=== PATIENT | female | born 1945 | race Caucasian/White ===

== ENCOUNTER 2021-11-16 20:27 | Observation (INO) | payer MEDICARE, SELFPAY ==
[2021-11-16 20:29] VITALS: BP 115/47; PULSE 101; RESP 15; TEMP 36.2; O2SAT 98; BMI 20.2
--- NOTE | 2021-11-16 20:47 | EX.ED.DYSGE1 ---
HPI History of Present Illness Chief Complaint: Lower Extremity Injury Informant: patient and family Narrative Narrative: 76-year-old female presenting to the emergency room with left knee pain. Patient states that she fell last night and broke her patella. She was placed in a knee immobilizer at the urgent care. She takes tramadol chronically for chronic pain and it was not helping her last night. She went and saw her primary care provider today and [place] was given a prescription for hydrocodone but its not helping her pain. Her primary care physician advised them to come to emergency for pain control tonight. PFSH PFSH Medical History (Updated 11/16/21 @ 22:[address] Joe Mustafa DO) COPD (chronic obstructive pulmonary disease) DVT (deep venous thrombosis) Former smoker GERD (gastroesophageal reflux disease) Hypothyroidism Osteoporosis Pancreatitis Sleep apnea Allergy/AdvReac Type Severity Reaction Status Date / Time codeine AdvReac Upset Verified 11/16/21 20:29 Stomach Surgical History (Updated 11/16/21 @ 20:54 by Meredith Barahona) H/O: hysterectomy History of appendectomy History of bladder repair surgery History of cholecystectomy History of hernia surgery History of total right knee replacement Previous back surgery S/P surgery on nasal septum Social History (Updated 11/16/21 @ 20:[address] Joe Mustafa DO) current gender identity: female Smoking Status: Never smoker ROS ROS ED Constitutional Constitutional ED: Denies chills or weight loss Eyes Eyes: Denies change in vision or diplopia ENT ENT ED: Denies ear pain, rhinorrhea or sore throat Cardiovascular Cardiovascular: Denies chest pain, orthopnea, palpitations or racing heartbeat Respiratory/Chest Respiratory/Chest: Denies cough, dyspnea or orthopnea Gastrointestinal Gastrointestinal: Denies abdominal pain, diarrhea, nausea or vomiting Genitourinary Genitourinary ED: Denies dysuria, hematuria or urinary frequency Musculoskeletal Musculoskeletal: Reports other Details: Left knee pain ; Denies arthralgias or myalgias Integumentary Denies abscess or rash Neurologic Neurologic: Denies headache(s) or weakness Psychiatric Psychiatric: Denies anxiety, depression, suicidal ideation or suicidal thoughts Endocrine Endocrinology: Denies polydipsia, polyphagia or polyuria Allergic/Immunologic Allergic/Immunologic ED: Denies mouth swelling, tongue swelling or urticaria EXAM Physical Exam Const Vital Signs: 11/16/21 20:29 Temperature 97.2 F L Temperature Source Temporal Pulse Rate 101 H Respiratory Rate 15 Blood Pressure 115/47 L Blood Pressure Mean 69 Pulse Ox 98 Oxygen Delivery Method Room Air Positive well nourished and well developed General Appearance ED: well developed HEENT Reports normocephalic, head/scalp atraumatic and moist mucous membranes Eyes PERRL and EOMs intact bilaterally Neck no lymphadenopathy, supple and no JVD Resp normal respiratory effort and clear to auscultation bilaterally Cardio regular rate, regular rhythm and no murmurs GI normal to inspection, nondistended, normoactive bowel sounds and non-tender Palpation: soft Back/Spine no CVA tenderness and normal ROM Extremity Extremity Narrative: Tender to palpation of the left patella/knee. The knee immobilizer she has on is large ill fitting and is down near her ankle providing minimal knee support. She has been here General Extremety ED: Negative for edema General Extremity: Negative for edema Neuro oriented x3 and CN's II-XII intact bilaterally Sensorium / Orientation: alert Motor Exam: strength 5/5 throughout Psych mental status grossly normal Mood & Affect: Negative for depressed or tearful Skin no rashes or lesions noted and no wounds MDM MDM MDM Narrative Medical decision making narrative: My impression of the plain films of the left knee is a nondisplaced incomplete patellar fracture. My impression of the plain films of the left hip and pelvis is no acute fracture. Patient received a dose of morphine and Valium. In speaking with the patient and her family she most likely would benefit from rehab facility help as she is not ambulating and her pain is not controlled. I will speak with our hospitalist regarding admission. Lab Data Labs: Laboratory Results - last 24 hr 11/16/21 11/16/21 22:15 22:15 WBC 7.9 RBC 4.04 L Hgb 12.0 Hct 37.8 MCV 93.6 MCH 29.7 MCHC 31.7 L RDW Std Deviation 45.1 H RDW Coeff of Jay[place] 13.2 Plt Count 243 MPV 9.6 Immature Gran % (Auto) 0.500 Neut % (Auto) 72.1 H Lymph % (Auto) 15.9 L [place] % (Auto) 10.8 H Eos % (Auto) 0.3 Baso % (Auto) 0.4 Absolute Neuts (auto) 5.7 Absolute Lymphs (auto) 1.25 Nucleated RBC % 0 Sodium 139 Potassium 4.0 Chloride 105 Carbon Dioxide 32.0 Anion Gap 2 L BUN 21 H Creatinine 0.73 Estim Creat Clear Calc 48.42 Est GFR (MDRD) Af Amer 101 Est GFR (MDRD) Non-Af 83 BUN/Creatinine Ratio 28.9 H Glucose 119 H Calcium 8.8 Radiography Diagnostic Testing: Clinical Impression(s) from Imaging Studies Knee X-Ray 11/16/21 21:07 IMPRESSION: Suspected fracture of the patella with mild thickening soft tissues anterior to the patellar tendon suggesting contusion. No patella andria. Correlation with CT would be helpful. Joint effusion and intra-articular amorphous calcifications suggesting prior cartilage injury and osteochondromatosis. Electronically Signed: Nitesh Hicks DO at 22:27 EDT , Hip/Pelvis X-Ray 11/16/21 21:37 IMPRESSION: No fracture or malalignment. Electronically Signed: Nitesh Hicks DO at 22:20 EDT , Discharge Plan Dx/Rx/DC Orders Clinical Impression: Closed fracture of left patella, Contusion of hip, left, Acute pain of left lower extremity, Chronic peripheral neuropathic pain Disposition Disposition: Acute Care [facility]
--- NOTE | 2021-11-16 21:07 | RAD_ITS ---
INDICATION: fracture EXAMINATION/TECHNIQUE: X-RAY - LEFT XR Knee 1 or 2 Views 2 VIEWS COMPARISON: Left hip x-rays from the same evening. FINDINGS: SOFT TISSUES: Abnormal joint effusion with areas of hyperdensity suggesting calcification. No radiopaque foreign body. BONES/JOINTS: Transverse lucency through the inferior pole of the patellar articular surface likely represents fracture. Irregular bony exostosis superior and inferior poles patella most likely degenerative in etiology. Joint space is relatively well maintained for age. There is some mild prepatellar soft tissue thickening/soft tissue swelling. RAD/Knee 1 or 2 Views IMPRESSION: Suspected fracture of the patella with mild thickening soft tissues anterior to the patellar tendon suggesting contusion. No patella andria. Correlation with CT would be helpful. Joint effusion and intra-articular amorphous calcifications suggesting prior cartilage injury and osteochondromatosis. Electronically Signed: Nitesh Hicks DO at 22:27 EDT ,
[2021-11-16] MEDS: diazePAM 5 MG Tablet PO (21:21)
[2021-11-16] MEDS: morphine 10 MG/ML Syringe IM (21:24)
--- NOTE | 2021-11-16 21:37 | RAD_ITS ---
INDICATION: injury EXAMINATION/TECHNIQUE: X-RAY - LEFT XR Hip Unilateral with Pelvis when performed; 2-3 Views 3 VIEWS COMPARISON: Left knee x-rays obtained in conjunction with this exam. FINDINGS: SOFT TISSUES: No soft tissue swelling or gas. No radiopaque foreign body. BONES/JOINTS: No acute fracture or malalignment. Relatively well maintained bilateral hip joint space with minimal degenerative changes for age. No sclerotic or destructive changes observed. Degenerative changes lower lumbar spine. RAD/HIP, UNI W/ Pelvis 2-3 Views IMPRESSION: No fracture or malalignment. Electronically Signed: Nitesh Hicks DO at 22:20 EDT ,
[2021-11-16 22:19] LABS: Absolute Lymphocyte Count 1.25 X10^3/uL (0.83-4.51); Absolute Neutrophil Count 5.7 X10^3/uL (2.0-7.7); Basophil# 0.03 X10^3/uL; Basophil% 0.4 % (0-1); Eosinophil# 0.02 X10^3/uL; Eosinophils% 0.3 % (0-5); Hematocrit 37.8 % (37-47); Lymphocyte # 1.25 X10^3/ul (0.83-4.51); Lymphocyte % 15.9 % (19-41); Mean Corp Hgb Conc 31.7 g/dL (32-36); Mean Corpuscular Hgb 29.7 pg (27.0-32.0); Mean Corpuscular Volume 93.6 fL (81-99); Mean Platelet Vol. 9.6 fl (6.2-12.0); Monocyte# 0.85 X10^3/uL; Monocyte% 10.8 % (0-10); NRBC Flagged by Analyzer 0 % (0-5); Neutrophil # 5.68 X10^3/uL (2.7-7.7); Neutrophil % 72.1 % (47-70); Platelet Count 243 K/mm3 (150-450); RBC Distribution Width CV 13.2 % (11.6-14.6); RBC Distribution Width SD 45.1 fl (35.1-43.9); Red Blood Count 4.04 M/mm3 (4.2-5.4); White Blood Count 7.9 K/mm3 (4.4-11.0)
[2021-11-16 22:34] LABS: Anion Gap 2 (5-15); BUN 21 mg/dL (7-18); BUN/Creat Ratio 28.9 RATIO (10-20); Calcium,Total 8.8 mg/dL (8.5-10.1); Chloride 105 mmol/L (98-107); Creatinine, Serum 0.73 mg/dL (0.55-1.02); EST Glomerular Filtration Rate 83 mL/min (>60); Est Glom Filt Rate - Afr Amer 101 mL/min (>60); Estimated Creatinine Clearance 48.42 ml/min; Glucose 119 mg/dL (74-106); Sodium Level 139 mmol/L (136-145)
--- NOTE | 2021-11-16 22:46 | PCM.HP.STD ---
HPI - General General Date of Admission: 11/16/21 Date of Service: 11/16/21 Chief Complaint: Left knee pain HPI Narrative WILL BAUTISTA, is a 76 F who presents with the above. Patient has past medical history of degenerative joint disease, peripheral neuropathy on Cymbalta who comes in after a fall at the prior to admission. Patient stated that she was at a buffet restaurant and was getting her food when she tripped and fell. She has since had severe left knee pain that is worse with ambulation. Her knee is also swollen. She was seen and given a knee immobilizer in the local ED that was not firm for her. Her daughter brought her to [facility] to be able to take care of her. She however has been requiring more more help with her ADLs and has poor pain control since Blood pressure 115/47, heart rate 101, respiratory 15, temperature 97.2 F, oxygen sat is 98% on room air. CBCD, CMP is unremarkable. X-ray of the knee shows suspected fracture of the patella with mild thickening of the soft tissues anterior to the patellar tendon status the above contusion, joint effusion and intra-articular amorphous calcifications suggestive of prior injury and osteochondromatosis. X-ray of the hip is unremarkable [facility] Medical History COPD (chronic obstructive pulmonary disease) DVT (deep venous thrombosis) Former smoker GERD (gastroesophageal reflux disease) Hypothyroidism Osteoporosis Pancreatitis Sleep apnea Home Medications aspirin 81 mg tablet,delayed release (Adult Low Dose Aspirin) 1 tab PO DAILY 11/16/21 [History Last Taken Unknown] duloxetine 20 mg capsule,delayed release 2 cap PO DAILY 11/16/21 [History Last Taken Unknown] levothyroxine 112 mcg tablet (Synthroid) 1 tab PO DAILY 11/16/21 [History Last Taken Unknown] omeprazole 40 mg capsule,delayed release 1 cap PO DAILY 11/16/21 [History Last Taken Unknown] pramipexole 0.125 mg tablet 0.125 mg PO QHS PRN restless legs 11/16/21 [History Last Taken Unknown] tramadol 50 mg tablet 1 tab PO Q8H PRN Pain 11/16/21 [History Last Taken Unknown] Allergy/AdvReac Type Severity Reaction Status Date / Time nickel Allergy Hives Verified 11/16/21 23:43 codeine AdvReac Upset Verified 11/16/21 20:29 Stomach Family History (Updated 11/16/21 @ 23:[address] Rakel Ocampo MD) Mother COPD (chronic obstructive pulmonary disease) Liver disease Father CVA (cerebral vascular accident) Hemorrhagic Surgical History H/O: hysterectomy History of appendectomy History of bladder repair surgery History of cholecystectomy History of hernia surgery History of total right knee replacement Previous back surgery S/P surgery on nasal septum Social History (Updated 11/16/21 @ 23:[address] Rakel Ocampo MD) household members: none current gender identity: female Smoking Status: Former smoker alcohol intake: never substance use type: does not use ROS ROS Narrative Constitutional: Denies: Anorexia, Chills, Fever, Night Sweats, Weight Change Eyes: Denies: Blurred vision, Cataracts, Conjunctivae Inflammation, Pain, Redness, Vision Change HEENT: Denies: Difficulty Hearing, Difficulty Swallowing, Head Aches, Hearing Changes, Sinus Congestion, Sinus Drainage Cardiovascular: Denies: Chest Pain, Orthopnea, Palpitations Respiratory: Denies: Cough, Shortness of breath at rest, Sputum production Gastrointestinal: Denies: Abdominal Pain, Nausea, Vomiting Genitourinary: Denies: Dysuria Musculoskeletal: See HPI Skin: Denies: Rash, Wounds Neurological: Denies: Numbness, Tingling, Focal weakness Vital Signs Vital Signs Vital Signs: 11/16/21 20:29 Temperature 97.2 F L Temperature Source Temporal Pulse Rate 101 H Respiratory Rate 15 Blood Pressure 115/47 L Blood Pressure Mean 69 Pulse Ox 98 Oxygen Delivery Method Room Air Weight Weight: 62.142 kg Body Mass Index (BMI) 20.2 Physical Exam Narrative Physical exam: General: Alert, Oriented x3, Cooperative, in severe pain HEENT: Atraumatic Oral: Moist Mucosa Neck: Supple Lungs: Clear to auscultation Cardiovascular: HS I+II, regular, tachycardic, no murmurs Abdomen: Bowel Sounds Present, Soft, Non Tender Extremities: No bilateral pedal edema, left knee is tender to touch, in a knee immobilizer Skin: No rashes, No breakdown Neurological: Grossly intact Psych/Mental Status: Appropriate Results Lab / Micro Data Result Diagrams: 11/16/21 22:15 11/16/21 22:15 Labs: Laboratory Results - last 24 hr 11/16/21 22:15: WBC 7.9, RBC 4.04 L, Hgb 12.0, Hct 37.8, MCV 93.6, MCH 29.7, MCHC 31.7 L, RDW Std Deviation 45.1 H, RDW Coeff of Jaydon 13.2, Plt Count 243, MPV 9.6, Immature Gran % (Auto) 0.500, Neut % (Auto) 72.1 H, Lymph % (Auto) 15.9 L, [place] % (Auto) 10.8 H, Eos % (Auto) 0.3, Baso % (Auto) 0.4, Absolute Neuts (auto) 5.7, Absolute Lymphs (auto) 1.25, Nucleated RBC % 0 11/16/21 22:15: Sodium 139, Potassium 4.0, Chloride 105, Carbon Dioxide 32.0, Anion Gap 2 L, BUN 21 H, Creatinine 0.73, Estim Creat Clear Calc 48.42, Est GFR (MDRD) Af Amer 101, Est GFR (MDRD) Non-Af 83, BUN/Creatinine Ratio 28.9 H, Glucose 119 H, Calcium 8.8 Radiology Impression Knee X-Ray 11/16/21 21:07 IMPRESSION: Suspected fracture of the patella with mild thickening soft tissues anterior to the patellar tendon suggesting contusion. No patella andria. Correlation with CT would be helpful. Joint effusion and intra-articular amorphous calcifications suggesting prior cartilage injury and osteochondromatosis. Electronically Signed: Nitesh Hicks DO at 22:27 EDT , Hip/Pelvis X-Ray 11/16/21 21:37 IMPRESSION: No fracture or malalignment. Electronically Signed: Nitesh Hicks DO at 22:20 EDT , Assessment & Plan Assessment/Plan (1) Closed fracture of left patella: PLAN: Plan 1. Debility secondary to acute closed left patella fracture, traumatic, status post fall Patient has underlying history of peripheral neuropathy, suspect that contributed to her fall Patient is unable to ambulate; family is unable to care for her Admit to MedSurg, pain control, PT and OT to evaluate and treat, continue knee immobilizer Continue with scheduled Tylenol, as needed oxycodone and morphine Continue on home Cymbalta when med reconciliation is done Patient will need to continue in the outpatient with orthopedics 2. Peripheral neuropathy/restless legs, continue Cymbalta, pramipexole 3. Hypothyroidism, continue Synthroid 4. GERD, continue PPI 5. DVT prophylaxis -Lovenox subcu Charges/Coding Visit Charges OBSV E&M: 33707 Initial observation care L3
[2021-11-16 23:30] VITALS: RESP 16; O2SAT 95; BMI 19.6
[2021-11-16 23:33] VITALS: BP 115/47; PULSE 86; RESP 16; TEMP 36.3; O2SAT 98
[2021-11-16 23:50] VITALS: BP 126/57; PULSE 65; RESP 18; TEMP 36.6; O2SAT 98
[2021-11-17] VITALS (11 sets, daily range): BP systolic 101–114; BP diastolic 45–84; PULSE 71–98; RESP 16–20; TEMP 36.4–37.2; O2SAT 69–98
[2021-11-17] MEDS: oxyCODONE 5 MG Tablet PO ×2 (00:27→07:21)
[2021-11-17] MEDS: Acetaminophen 325 MG Tablet 650 MG PO (00:27)
[2021-11-17] MEDS: 0.9% Saline Lock 10 ML Syringe IV ×4 (02:41→20:40)
[2021-11-17] MEDS: Levothyroxine 112 MCG Tablet PO (05:52)
[2021-11-17 06:24] LABS: Absolute Lymphocyte Count 1.33 X10^3/uL (0.83-4.51); Absolute Neutrophil Count 4.9 X10^3/uL (2.0-7.7); Basophil# 0.03 X10^3/uL; Basophil% 0.4 % (0-1); Eosinophil# 0.07 X10^3/uL; Hematocrit 36.4 % (37-47); Hemoglobin 11.9 g/dL (12.0-15.0); Lymphocyte # 1.33 X10^3/ul (0.83-4.51); Lymphocyte % 18.6 % (19-41); Mean Corp Hgb Conc 32.7 g/dL (32-36); Mean Corpuscular Hgb 30.4 pg (27.0-32.0); Mean Corpuscular Volume 92.9 fL (81-99); Mean Platelet Vol. 10.1 fl (6.2-12.0); Monocyte# 0.81 X10^3/uL; Monocyte% 11.3 % (0-10); NRBC Flagged by Analyzer 0 % (0-5); Neutrophil # 4.89 X10^3/uL (2.7-7.7); Neutrophil % 68.4 % (47-70); Platelet Count 224 K/mm3 (150-450); RBC Distribution Width CV 13.3 % (11.6-14.6); RBC Distribution Width SD 45.6 fl (35.1-43.9); Red Blood Count 3.92 M/mm3 (4.2-5.4); White Blood Count 7.2 K/mm3 (4.4-11.0)
[2021-11-17 06:54] LABS: AST(SGOT) 15 U/L (15-37); Alanine Aminotransfer ALT/SGPT 19 U/L (13-56); Albumin, Serum 2.8 g/dL (3.2-5.0); Alkaline Phosphatase 120 U/L (45-117); Anion Gap 3 (5-15); BUN 20 mg/dL (7-18); BUN/Creat Ratio 30.3 RATIO (10-20); Calcium,Total 8.3 mg/dL (8.5-10.1); Chloride 108 mmol/L (98-107); Creatinine, Serum 0.66 mg/dL (0.55-1.02); EST Glomerular Filtration Rate 93 mL/min (>60); Est Glom Filt Rate - Afr Amer 113 mL/min (>60); Estimated Creatinine Clearance 46.91 ml/min; Globulin 2.9 g/dL (2.2-4.2); Glucose 111 mg/dL (74-106); Protein, Total 5.7 g/dL (6.4-8.2); Sodium Level 141 mmol/L (136-145)
--- NOTE | 2021-11-17 07:10 | PCM.PN.HOSP ---
Subjective Subjective Still with pain in her hip and knee. Objective Data Objective Data Vital Signs: Vital Signs Temp Pulse Resp BP Pulse Ox O2 Del Method O2 Flow Rate 36.5 C L 71 16 113/45 L 96 Nasal Cannula 2 11/17/21 05:45 11/17/21 05:45 11/17/21 05:45 11/17/21 05:45 11/17/21 05:45 11/17/21 05:45 11/17/21 05:45 Oxygen Flow Rate (L/min) 2 Oxygen Delivery Method Nasal Cannula Weight: 60.2 kg Body Mass Index (BMI) 19.6 Intake & Output: Intake and Output for Last 24 Hours 11/15/21 11/16/21 11/17/21 23:59 23:59 23:59 Intake Total 100 / 100 Balance 100 / 100 Lab / Micro Data Result Diagrams: 11/17/21 05:53 11/17/21 05:53 Labs: Laboratory Results - last 24 hr 11/16/21 22:15: WBC 7.9, RBC 4.04 L, Hgb 12.0, Hct 37.8, MCV 93.6, MCH 29.7, MCHC 31.7 L, RDW Std Deviation 45.1 H, RDW Coeff of Jaydon 13.2, Plt Count 243, MPV 9.6, Immature Gran % (Auto) 0.500, Neut % (Auto) 72.1 H, Lymph % (Auto) 15.9 L, [place] % (Auto) 10.8 H, Eos % (Auto) 0.3, Baso % (Auto) 0.4, Absolute Neuts (auto) 5.7, Absolute Lymphs (auto) 1.25, Nucleated RBC % 0 11/16/21 22:15: Sodium 139, Potassium 4.0, Chloride 105, Carbon Dioxide 32.0, Anion Gap 2 L, BUN 21 H, Creatinine 0.73, Estim Creat Clear Calc 48.42, Est GFR (MDRD) Af Amer 101, Est GFR (MDRD) Non-Af 83, BUN/Creatinine Ratio 28.9 H, Glucose 119 H, Calcium 8.8 11/17/21 05:53: WBC 7.2, RBC 3.92 L, Hgb 11.9 L, Hct 36.4 L, MCV 92.9, MCH 30.4, MCHC 32.7, RDW Std Deviation 45.6 H, RDW Coeff of Jaydon 13.3, Plt Count 224, MPV 10.1, Immature Gran % (Auto) 0.300, Neut % (Auto) 68.4, Lymph % (Auto) 18.6 L, [place] % (Auto) 11.3 H, Eos % (Auto) 1.0, Baso % (Auto) 0.4, Absolute Neuts (auto) 4.9, Absolute Lymphs (auto) 1.33, Nucleated RBC % 0 11/17/21 05:53: Sodium 141, Potassium 4.0, Chloride 108 H, Carbon Dioxide 30.0, Anion Gap 3 L, BUN 20 H, Creatinine 0.66, Estim Creat Clear Calc 46.91, Est GFR (MDRD) Af Amer 113, Est GFR (MDRD) Non-Af 93, BUN/Creatinine Ratio 30.3 H, Glucose 111 H, Calcium 8.3 L, Total Bilirubin 0.60, AST 15, ALT 19, Alkaline Phosphatase 120 H, Total Protein 5.7 L, Albumin 2.8 L, Globulin 2.9, Albumin/Globulin Ratio 1.0 Radiography Diagnostic Testing: Radiology Impression Knee X-Ray 11/16/21 21:07 IMPRESSION: Suspected fracture of the patella with mild thickening soft tissues anterior to the patellar tendon suggesting contusion. No patella andria. Correlation with CT would be helpful. Joint effusion and intra-articular amorphous calcifications suggesting prior cartilage injury and osteochondromatosis. Electronically Signed: Nitesh Hicks DO at 22:27 EDT , Hip/Pelvis X-Ray 11/16/21 21:37 IMPRESSION: No fracture or malalignment. Electronically Signed: Nitesh Hicks DO at 22:20 EDT , Physical Exam Const alert and no apparent distress Resp normal respiratory effort, no retractions, no use of accessory muscles and clear to auscultation bilaterally Cardio regular rate, regular rhythm, S1 normal heart sound and S2 normal heart sound GI normal to inspection, nondistended, normoactive bowel sounds and soft to palpation Extremity Extremity Narrative: Left leg in immobilizer. left knee effusion. Tender to palpation over the left hip. Psych Mood & Affect: anxious Assessment & Plan Assessment/Plan (1) Debility: PLAN: PT OT evaluate and treat May need SNF (2) Closed fracture of left patella: PLAN: Pain control for function without impairing mentation Immobilizer Follow up with orthopaedics as outpt. Check 25-hydroxy vitamin D level PLAN: Plan VTE prophylaxis with enoxaparin. Disposition: To be determined. Anticipate patient will require long term facility upon discharge. Charges/Coding Visit Charges OBSV E&M: 55850 Subsequent observation care L2
[2021-11-17] MEDS: Aspirin E.C. 81 MG Tablet PO (08:59)
[2021-11-17] MEDS: DULoxetine Hcl 20 MG Capsule 40 MG PO (09:03)
[2021-11-17] MEDS: Pantoprazole Sodium 40 MG Tablet PO (09:03)
[2021-11-17] MEDS: Enoxaparin 40 MG/0.4 ML Syringe SC (09:04)
[2021-11-17] MEDS: oxyCODONE 5 MG Tablet 10 MG PO ×2 (11:31→20:04)
[2021-11-17] MEDS: Lidocaine 5% Patch 1 PATCH TOPICAL (12:49)
[2021-11-17] MEDS: Ketorolac 30 MG/ML Syringe IV ×2 (12:50→18:04)
--- NOTE | 2021-11-17 13:25 | CM.ED ---
Addendum entered by Lisa Bloom 11/17/21 14:32: SW spoke to patient about depression and SI when this designer writer completed the CM assessment. Patient denied any SI/HI. She voiced she would never harm herself. She voiced that she understands the impact that pain has on living but I still have hope. IRVIN provided emotional support. Lisa Bloom MSW GARY Original Note: IRVIN Note IRVIN received voice mail from catering chef Merline that patient's niece wants to be involved in discharge planning and SNF discussion. Merline said that Elva triplett's number is on the chart. IRVIN met with Elva. Elva said that patient's MD's are at [facility]. Elva said that she was advised that [facility] had no beds so she brought patient to [facility]. Elva said that patient has a neurologist that is at [facility] who did a nerve study but they have not received the results of the nerve study. Elva said that patient's Ortho are also at [facility]. Elva inquired about going to a rehab facility that is associated and linked with [facility]. Elva said that she would like to know the results of the nerve study from neurology. Elva said that patient is in horrible nerve pain. Elva said that during the day patient moves and is mowing the grass etc but at night when she is not moving the pain is bad. Elva said that patient has not been sleeping or resting and that has gone on for awhile. Elva said that patient was supposed to have outpatient PT. Elva also voiced that the ortho at the urgent care said that the pain may be reduced in a couple of days. Elva said that if the pain is reduced patient may be at her baseline and patient could go home or back to her own house. Elva said that patient has always stated that she does not want SNF but voiced that the pain is so bad she will do whatever. IRVIN discussed options of rehab at SNF or [facility]. Elva said that she would like patient to go to rehab as she knows the MD Kane (Elva used to work at [facility]). IRVIN advised that PT will evaluate patient and determine what level of care patient needs. Patient has never been at a SNF before. SW provided emotional support. IRVIN also provided Elva with [facility] information. IRVIN, with Elva's permission, will make a referral to RU/TCU to see if patient is appropriate and if insurance will cover patient's stay. Elva said that in the past patient has voiced concern about her purpose due to the pain so she linked patient with neurology to attempt to resolve what was occurring. Elva said that patient has also lost a son approximately 1 1/2 years ago which is difficult for patient. Elva voiced that patient has not been suicidal but has voiced frustration about the pain and and about what she has not been able to do because of the pain. However, Elva said that at times patient has been very independent but patient has declined over the past year. Elva said that if PT is ordered they will see what they think patient will need and then with that information proceed. SW remains available if needs arise. IRVIN sent email to [facility] inquiring if she could review patient to see if they had room, if [facility]'s insurance covered it and if she was appropriate. Plan: To be determined, Resources Provided Lisa VEGA
[2021-11-17] MEDS: Acetaminophen 500 MG Tablet 1000 MG PO ×2 (14:07→20:21)
--- NOTE | 2021-11-17 14:24 | CM.ED ---
SW Note Information Source: Patient Family Present: None when interviewing however, Elva (patient's niece) came in later. Next of Kin: Elva, patient's niece (list as NOK on face sheet) Living Will/ HCPOA: Patient reports she has this and Elva is her POA Name of PCP: Attila Wang [place] affiliated with [facility] Specialist: Ortho from [facility], Pfefferde, Neurologist from [facility] Isa May and Dr. Mitchell for blood at [facility]. Patient said that she sees Dr. Mitchell as she has mgus. Name of Pharmacy: [facility] mail in via insurance Prescription Coverage: [employer] : by herself Living Arrangement: Patient has 3 story house with 3/4 steps into the house. Her bedroom is on the main floor. Patient reports that she can do everything on the main floor except laundry which is in the basement. ADL's: Patient is very independent... I even mow my yard. Quality of family Relationships: Patient reports good family and friends supports Patient reports she feels safe at home Patient drives Patient has an electric bed, raised toilet seat, BSC which she uses as a shower chair, grab bars, hand held shower, walker, rollator, medical alert and grabber. Patient said that she has all the DME's from when she had surgery for her knee. Patient had outpatient rehab at [facility] in the past. Patient had home health in the past but cannot recall the name of the provider. Plan: To be determined Lisa VEGA
--- NOTE | 2021-11-17 16:42 | CASEMGMT ---
MELANI WADSWORTH in to complete MCMILLAN form with patient. MELANI WADSWORTH explained MCMILLAN form to patient, patient voiced understanding. Patient signed MCMILLAN form and filed in chart. Patient provided copy of signed MCMILLAN form. Patient had no further questions or concerns at this time.
[2021-11-17] MEDS: Senna/Docusate Sodium 1 Tablet 2 TABLET PO (20:21)
[2021-11-17] MEDS: Pramipexole Di-HCl 0.125 MG Tablet PO (20:22)
[2021-11-18] VITALS (11 sets, daily range): BP systolic 104–120; BP diastolic 42–65; PULSE 64–86; RESP 18–20; TEMP 36.3–36.8; O2SAT 95–98
[2021-11-18] MEDS: Ketorolac 30 MG/ML Syringe IV ×3 (00:34→12:36)
[2021-11-18] MEDS: 0.9% Saline Lock 10 ML Syringe IV ×2 (00:36→21:21)
[2021-11-18] MEDS: oxyCODONE 5 MG Tablet PO ×3 (01:39→12:47)
[2021-11-18] MEDS: Levothyroxine 112 MCG Tablet PO (06:15)
[2021-11-18] MEDS: Acetaminophen 500 MG Tablet 1000 MG PO ×3 (06:15→21:18)
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
[2021-11-18] MEDS: Aspirin E.C. 81 MG Tablet PO (09:13)
[2021-11-18] MEDS: Enoxaparin 40 MG/0.4 ML Syringe SC (10:36)
[2021-11-18] MEDS: Pantoprazole Sodium 40 MG Tablet PO (10:37)
[2021-11-18] MEDS: Lidocaine 5% Patch 1 PATCH TOPICAL (10:43)
[2021-11-18] MEDS: DULoxetine Hcl 20 MG Capsule 40 MG PO (10:43)
[2021-11-18] MEDS: Senna/Docusate Sodium 1 Tablet 2 TABLET PO (14:56)
[2021-11-18] MEDS: oxyCODONE 5 MG Tablet 10 MG PO ×2 (18:14→23:58)
[2021-11-18] MEDS: Pramipexole Di-HCl 0.125 MG Tablet PO (21:17)
[2021-11-19] VITALS (9 sets, daily range): BP systolic 98–114; BP diastolic 44–68; PULSE 67–84; RESP 18–20; TEMP 36.5–37.3; O2SAT 92–95
[2021-11-19] MEDS: Levothyroxine 112 MCG Tablet PO (06:33)
[2021-11-19] MEDS: Acetaminophen 500 MG Tablet 1000 MG PO ×3 (06:33→22:47)
[2021-11-19] MEDS: oxyCODONE 5 MG Tablet 10 MG PO ×3 (06:35→22:48)
[2021-11-19 07:55] LABS: Vitamin D,25 Hydroxy 29.5 ng/mL
[2021-11-19] MEDS: Pantoprazole Sodium 40 MG Tablet PO (09:45)
[2021-11-19] MEDS: Enoxaparin 40 MG/0.4 ML Syringe SC (09:45)
[2021-11-19] MEDS: DULoxetine Hcl 20 MG Capsule 40 MG PO (09:45)
[2021-11-19] MEDS: Aspirin E.C. 81 MG Tablet PO (09:46)
[2021-11-19] MEDS: Lidocaine 5% Patch 1 PATCH TOPICAL (09:46)
--- NOTE | 2021-11-19 10:30 | CASEMGMT ---
Social Work SW in to met with pt. SW introduced self and role at the hospital. Pt stating she is not sure what she needs to do with discharge plans as she has an appointment with [facility] and she believes she will be going to [facility] to have surgery. Pt niece, Elva, called and stated she will be in soon to discuss options with pt and SW. SW voiced understanding and shared intent to return to pt room when niece arrives. Before leaving SW provided a list of?SNF?providers including quality and resource use data that is consistent with the patient?s preferred geographic region, medical needs, and insurance network. Pt preferred to wait for her niece before discussing further plans. JALEEL Morales
--- NOTE | 2021-11-19 12:27 | PN.HOSP_ITS ---
Subjective Subjective Patient seen and examined. She had no active complaints today. She had an uneventful night and review of systems otherwise negative. Pain is well controlled. Patient tells me that she has been scheduled to have left knee replacement by a surgeon in [place] and so she was wondering why she has to let this patella fracture heal before she has the surgery. I offered to consult the orthopedic surgeons here but patient prefers to follow-up with her surgeon at: [facility] once she is stable for discharge. She has made hemodynamically stable. Objective Data Objective Data Vital Signs: Vital Signs Temp Pulse Resp BP Pulse Ox O2 Del Method O2 Flow Rate 98.1 F 70 18 107/57 L 95 Room Air 2 11/19/21 09:38 11/19/21 12:24 11/19/21 09:38 11/19/21 12:24 11/19/21 09:38 11/19/21 09:47 11/19/21 07:39 Oxygen Flow Rate (L/min) 2 Oxygen Delivery Method Room Air Weight: 132 lb 11.492 oz Body Mass Index (BMI) 19.6 Intake & Output: Intake and Output for Last 24 Hours 11/17/21 11/18/21 11/19/21 23:59 23:59 23:59 Intake Total 300 / 300 1240 / 1240 Output Total 500 / 500 Balance 300 / 100 740 / 740 Lab / Micro Data Result Diagrams: 11/17/21 05:53 11/17/21 05:53 Labs: Laboratory Results - last 24 hr 11/19/21 06:25: Vitamin D 25-Hydroxy 29.5 Physical Exam Const alert, oriented x3 and no apparent distress HEENT head/scalp atraumatic, moist oral mucous membranes and oropharynx normal Head and Scalp: normocephalic Mouth: oral and palatal mucosa normal Eyes PERRL, EOMs intact bilaterally and conjunctivae normal Neck no lymphadenopathy and supple Resp normal respiratory effort, no retractions, no use of accessory muscles and clear to auscultation bilaterally Cardio regular rate, regular rhythm, S1 normal heart sound, S2 normal heart sound and no murmurs GI normal to inspection, nondistended, normoactive bowel sounds, soft to palpation, non-tender and non-distended Extremity Extremity Narrative: left knee in knee brace Neuro oriented x3, CN's II-XII intact bilaterally, no focal motor deficits and no sensory deficits noted Sensorium / Orientation: awake and alert Motor Exam: strength 5/5 throughout Psych affect normal Assessment & Plan Assessment/Plan (1) Closed fracture of left patella: QUALIFIERS: Encounter type: subsequent encounter Fracture morphology: unspecified fracture morphology Fracture alignment: nondisplaced Fracture healing: with routine healing Qualified Code(s): S82.002D - Unspecified fracture of left patella, subsequent encounter for closed fracture with routine healing PLAN: Plan #Closed fracture of left patella due to mechanical fall * PT/OT n board. Fall precautions * on tylenol, oxycodone and morphine prn * knee immobilizer in place * #Peripheral neuropathy and restless leg syndrome * on cymbalta and pramipexole * #Chronic left knee pain * says she was supposed to have knee surgery soon, and is wondering if she could have the surgery soon. She prefers to follow up with her surgeon at [facility] once she is stable for discharge * #Hypothyroidism: on synthroid #GERD: on PPI DVT prophylaxis: lovenox Disposition: awaiting placement Charges/Coding Visit Charges Inpatient E&M: 72317 Subs Hosp L2
[2021-11-19] MEDS: oxyCODONE 5 MG Tablet PO (12:31)
--- NOTE | 2021-11-19 13:53 | CHAPLAIN ---
Type of Pastoral Visit _x_ Initial Visit ___ Follow-up Visit ___ On-call Visit ___ General Patient Visit ___ Spiritual Assessment ___ Family Conference ___ Bereavement ___ Rapid Response ___ Code Blue ___ Other (describe below) Pastoral Care Referral From _x__ Patient ___ Family ___ Nurse ___ Physician ___ Belt Measurer ___ Casino Controller ___ Other (describe below) Sacrament/Intervention _x__ Active listening ___ Anointing ___ Rastafarian ___ Bereavement ___ Communion _x__ Debbie exploration ___ _x__ Life review _x__ Prayer ___ Reconciliation ___ Sacrament of Sick _x__ Supportive presence ___ Wedding ___ Other (describe below) Pastoral Comments patient is welcoming; guest gets up to leave so the two of you can talk, I know she will want that; pt asks questions of this business operations director; pt has discomfort and immediate goal is to get answers about having surgery; pt identifies herself as a Mosque and enlists support of spiritual care and prayer for self; pt shares some bits about her life
--- NOTE | 2021-11-19 14:28 | CASEMGMT ---
Social Work SW provided back and forth messages between pt and her niece, Elva to Dr. Bean. SW informed pt and her niece that TCU would not be able to accept her for the short stay of 1-2 days and [facility] will also not accept pt before her surgery as they feel she is not appropriate for the demanding 3 hour PT routine with a fractured knee. Pt niece then stating she will take pt home and request pt be discharged. IRVIN relayed the message to Dr. Bean, who stated she did not feel comfortable discharging pt today as she is not medically ready. Dr. Bean noted if they need her discharged tomorrow for the appt at [facility] tomorrow they can sign pt out AMA. SW relayed this message and pt niece refused, stated insurance would not cover the stay if this happens. Niece Elva and pt then asking if SW would look into getting Pt an ortho consult with a Dr. joseph at [facility]. SW reached out to Dr. Bean once again to inform her that pt is requesting an Ortho Consult here. Will await ongoing progress for this case. JALEEL Morales
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
--- NOTE | 2021-11-19 16:25 | CASEMGMT ---
Noted that pt needs a TROM brace. TC to [facility], spoke with Soni. She states they do fit patients for the brace. States once fitted, it could take 2-3 wks for the item to be received. Updated charge nurse.
[2021-11-19] MEDS: 0.9% Saline Lock 10 ML Syringe IV (22:53)
[2021-11-20 01:06] VITALS: PULSE 80; O2SAT 94
[2021-11-20 03:01] VITALS: BP 123/56; PULSE 90; RESP 20; TEMP 36.3; O2SAT 95
[2021-11-20] MEDS: oxyCODONE 5 MG Tablet 10 MG PO ×3 (03:01→13:41)
[2021-11-20] MEDS: Pramipexole Di-HCl 0.125 MG Tablet PO (03:02)
[2021-11-20 06:30] LABS: Absolute Lymphocyte Count 1.51 X10^3/uL (0.83-4.51); Absolute Neutrophil Count 3.2 X10^3/uL (2.0-7.7); Basophil# 0.03 X10^3/uL; Basophil% 0.6 % (0-1); Eosinophil# 0.15 X10^3/uL; Eosinophils% 2.8 % (0-5); Hematocrit 34.4 % (37-47); Hemoglobin 11.3 g/dL (12.0-15.0); Lymphocyte # 1.51 X10^3/ul (0.83-4.51); Mean Corp Hgb Conc 32.8 g/dL (32-36); Mean Corpuscular Hgb 29.9 pg (27.0-32.0); Mean Platelet Vol. 9.8 fl (6.2-12.0); Monocyte# 0.46 X10^3/uL; Monocyte% 8.5 % (0-10); NRBC Flagged by Analyzer 0 % (0-5); Neutrophil # 3.24 X10^3/uL (2.7-7.7); Neutrophil % 59.9 % (47-70); Platelet Count 258 K/mm3 (150-450); RBC Distribution Width CV 13.2 % (11.6-14.6); RBC Distribution Width SD 44.1 fl (35.1-43.9); Red Blood Count 3.78 M/mm3 (4.2-5.4); White Blood Count 5.4 K/mm3 (4.4-11.0)
[2021-11-20] MEDS: Levothyroxine 112 MCG Tablet PO (06:49)
[2021-11-20] MEDS: Acetaminophen 500 MG Tablet 1000 MG PO ×2 (06:49→13:41)
[2021-11-20 06:57] LABS: Anion Gap 2 (5-15); BUN 26 mg/dL (7-18); BUN/Creat Ratio 37.8 RATIO (10-20); Calcium,Total 8.3 mg/dL (8.5-10.1); Chloride 109 mmol/L (98-107); Creatinine, Serum 0.69 mg/dL (0.55-1.02); EST Glomerular Filtration Rate 89 mL/min (>60); Est Glom Filt Rate - Afr Amer 107 mL/min (>60); Estimated Creatinine Clearance 46.91 ml/min; Glucose 95 mg/dL (74-106); Potassium 4.5 mmol/L (3.5-5.1); Sodium Level 141 mmol/L (136-145)
[2021-11-20 08:17] VITALS: O2SAT 94
[2021-11-20] MEDS: DULoxetine Hcl 20 MG Capsule 40 MG PO (08:36)
[2021-11-20] MEDS: Enoxaparin 40 MG/0.4 ML Syringe SC (08:37)
[2021-11-20] MEDS: Aspirin E.C. 81 MG Tablet PO (08:37)
[2021-11-20] MEDS: Lidocaine 5% Patch 1 PATCH TOPICAL (08:37)
[2021-11-20] MEDS: Pantoprazole Sodium 40 MG Tablet PO (08:37)
[2021-11-20 09:00] VITALS: BP 119/63; PULSE 70; RESP 18; TEMP 36.6; O2SAT 95
--- NOTE | 2021-11-20 12:50 | CASEMGMT ---
Addendum entered by Angeles Deshpande 11/20/21 14:25: Pt accepted by [facility], MELANI WADSWORTH in pt room. Pt is aware as well as visitor. Again reinforced importance of getting TROM brace. Pt asks if there is a [facility] in [place], printed off information with address and phone number and given to pt. Pt nurse in room as pt needs to leave now by 2:30p as her visitor is able to take her home but needs to be able to go to work. Pt denies further needs. Addendum entered by Angeles Deshpande 11/20/21 13:29: Faxed referral to [facility]. 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 She is also aware of the information regarding [facility] and the need to be fitted for a brace. TC to Yusef at [facility], referral made. Updated hospitalist on plan. Original Note: MELANI WADSWORTH in to pt room, pt sitting up in chair. She states that she plans to go home and her niece Emilia Hernandez is going to stay with her. She provided this RN CM with her telephone number to call her regarding dc plan and update demos. Pt states she is agreeable to [facility]. She states she has had [facility] in the past but cannot recall who. Pt is aware that she will need to go to [facility] to be fitted for the TROM brace. Asked if this RN ERMELINDA could set up the appt for her. Pt states that she would just like the contact information as she has to arrange this with her niece for transportation. She is aware that this takes 2-3 weeks after fitting to come in. Patient was provided a list of [facility] providers including quality and resource use data and consistent with the patient?s preferred geographic region, medical needs, and insurance network. The patient?s preferred provider is [facility]
[2021-11-20 13:00] VITALS: BP 107/50; PULSE 73; RESP 18; TEMP 36.6; O2SAT 96
--- NOTE | 2021-11-20 13:28 | DS.PCM_ITS ---
Providers Date of Admission: 11/16/21 Date of Discharge: 11/20/21 Primary Care Physician: CHANDLER VICKERS Consultations 11/19/21 14:54 Consult: Orthopedics Routine Consulting Provider: Steven Wright Reason for Consult: left patella fracture EMERGENT Consult: No MD Notified: Yes Date Notified: 11/19/21 Time Notified: 14:54 Method of Notification: per Dr. Bean Reason For Visit: ACUTE PATELLAR FRACTURE Diagnosis Discharge Diagnosis (1) Closed fracture of left patella: Status: Acute Code(s): S82.002A - Unspecified fracture of left patella, initial encounter for closed fracture Qualifiers: Encounter type: subsequent encounter Fracture morphology: unspecified fracture morphology Fracture alignment: nondisplaced Fracture healing: with routine healing Qualified Code(s): S82.002D - Unspecified fracture of left patella, subsequent encounter for closed fracture with routine healing (2) Contusion of hip, left: Status: Acute Code(s): S70.02XA - Contusion of left hip, initial encounter Plan #Closed fracture of left patella due to mechanical fall * PT/OT n board. Fall precautions * on tylenol, oxycodone and morphine prn * knee immobilizer in place * #Peripheral neuropathy and restless leg syndrome * on cymbalta and pramipexole * #Chronic left knee pain * says she was supposed to have knee surgery soon, and is wondering if she could have the surgery soon. She prefers to follow up with her surgeon at [facility] once she is stable for discharge * #Hypothyroidism: on synthroid #GERD: on PPI DVT prophylaxis: lovenox Disposition: awaiting placement Medications at Discharge Home Medications aspirin 81 mg tablet,delayed release (Adult Low Dose Aspirin) 1 tab PO DAILY 11/16/21 duloxetine 20 mg capsule,delayed release 2 cap PO DAILY 11/16/21 levothyroxine 112 mcg tablet (Synthroid) 1 tab PO DAILY 11/16/21 omeprazole 40 mg capsule,delayed release 1 cap PO DAILY 11/16/21 pramipexole 0.125 mg tablet 0.125 mg PO QHS PRN restless legs 11/16/21 oxycodone 5 mg tablet 5 mg PO Q6H PRN pain 3 days #12 tabs 11/20/21 Hospital Course Operations None Procedures None Summary of Care Provided Minutes Spent on Discharge: 45 Hospital Course: Patient is a 76 y/o female with a PMH as outlined who was admitted via the ED on 11/16/2021 with a complaint of mechanical fall. She was at a restaurant and tripped and fell whilst getting her food. She had severe left knee pain which worsened with ambulation and her knee was also swollen. She was seen in the ED and given a knee immobilizer, but she still complained of the pain. Her daughter brought her to the ED as she wasnt able to carry out her activities of daily living. Imaging of the left knee done showed a suspected fracture of the patella with mild thickening of the soft tissue anterior to the patellar tendon status above the contusion and joint effusion as well as osteochondromatosis. She was admitted and managed for debility due to acute closed left patella traumatic fracture. Knee was immobilised in a brace and she worked with therapy. Orthopedic surgery was consulted. She had been due to have left knee replacement done by his surgeon at [facility]. Orthopedic surgery evaluated her and recommended that the left patella fracture be allowed to heal before being scheduled for the left knee repair. Orthopedics recommended 2 weeks of bracing the knee in extension followed by progressive range of motion directed by adequate healing. Orthopedics recommended a T Rom brace; this was not available in the hospital, and was to be ordered on outpatient basis. Patient remained stable and was discharged home on 11/20/2021 with home health care. She was given a script for PO oxycodone 5mg every 6 hours as needed for 3 days, for a total of 12 pills. She is to follow up with her PCP allan 1-2 weeks and orthopedics in 2 weeks. Patient seen and examined prior to discharge. She had no active complaints. Pain was well controlled. Review of systems is otherwise negative. Labs and vitals reviewed. Home meds reviewed and reconciled. Physical Exam Const alert, oriented x3 and no apparent distress General Appearance: cooperative and comfortable Orientation / Consciousness: awake Exam Limitations: no limitations HEENT normocephalic, head/scalp atraumatic, hearing grossly normal bilaterally, moist oral mucous membranes and oropharynx normal Mouth: oral and palatal mucosa normal Eyes PERRL, EOMs intact bilaterally and conjunctivae normal Neck no lymphadenopathy and supple Resp normal respiratory effort, no retractions, no use of accessory muscles and clear to auscultation bilaterally Cardio regular rate, regular rhythm, S1 normal heart sound, S2 normal heart sound and no murmurs GI normal to inspection, nondistended, normoactive bowel sounds, soft to palpation, non-tender and non-distended Extremity Extremity Narrative: left knee in knee brace Skin no rashes or lesions noted and no wounds Neuro oriented x3, CN's II-XII intact bilaterally, no focal motor deficits and no sensory deficits noted Sensorium / Orientation: awake and alert Motor Exam: strength 5/5 throughout Psych affect normal Mood & Affect: anxious Weight / BMI Weight Weight: 132 lb 11.492 oz Body Mass Index (BMI) 19.6 ABG / Lab / Microbiology Data Result Diagrams: 11/20/21 05:56 11/20/21 05:56 Laboratory: Laboratory Results - last 24 hr 11/20/21 05:56: WBC 5.4, RBC 3.78 L, Hgb 11.3 L, Hct 34.4 L, MCV 91.0, MCH 29.9, MCHC 32.8, RDW Std Deviation 44.1 H, RDW Coeff of [place] 13.2, Plt Count 258, MPV 9.8, Immature Gran % (Auto) 0.200, Neut % (Auto) 59.9, Lymph % (Auto) 28.0, [place] % (Auto) 8.5, Eos % (Auto) 2.8, Baso % (Auto) 0.6, Absolute Neuts (auto) 3.2, Absolute Lymphs (auto) 1.51, Nucleated RBC % 0 11/20/21 05:56: Sodium 141, Potassium 4.5, Chloride 109 H, Carbon Dioxide 30.0, Anion Gap 2 L, BUN 26 H, Creatinine 0.69, Estim Creat Clear Calc 46.91, Est GFR (MDRD) Af Amer 107, Est GFR (MDRD) Non-Af 89, BUN/Creatinine Ratio 37.8 H, Glucose 95, Calcium 8.3 L D/C Instructions Discharge Diet: Low fat / Low cholesterol Discharge Activity: Return to Normal Activity Weight Bearing Status: Weight bearing as tolerated Call your doctor if you observe: Uncontrolled pain Meaningful Use Info Meaningful Use Diagnoses (Choose all that apply): None applicable Discharge Plan Admission Admit Date/Time: 11/16/21 22:42 Primary Reason for Your Visit: acute left patellar fracture due to mechanical fall Attending Provider: Poonam Bean Primary Care Provider: CHANDLER VICKERS Consulting Providers: Rakel Ocampo ; Alfredo Rodriguez ; Steven Wright Instructions Patient Instructions: ED Fracture, Knee, ED Patella Fracture Discharge Orders/Prescriptions Prescriptions: New oxycodone 5 mg tablet 5 mg PO Q6H PRN (Reason: pain) 3 Days Qty: 12 0RF Continued omeprazole 40 mg capsule,delayed release(DR/EC) 1 cap PO DAILY aspirin [Adult Low Dose Aspirin] 81 mg tablet,delayed release (DR/EC) 1 tab PO DAILY Label Comments: 1 tablet by mouth once a day pramipexole 0.125 mg Tablet 0.125 mg PO QHS PRN (Reason: restless legs) Rx Instructions: takes 1-2 tabs levothyroxine [Synthroid] 112 mcg tablet 1 tab PO DAILY duloxetine 20 mg capsule,delayed release(DR/EC) 2 cap PO DAILY Label Comments: take 2 capsules by mouth once daily Discontinued tramadol 50 mg tablet 1 tab PO Q8H PRN (Reason: Pain) Label Comments: take 1 tablet by mouth three times a day to four times a day if needed for severe pain Referrals / Follow Up: CHANDLER VICKERS [Other] [facility] Doctor,Out of [NON-STAFF] - Disposition Disposition (needs filled in before D/C Order can be placed): Home Health Service Charges/Coding Visit Charges Inpatient E&M: 48564 Disch Hosp
--- NOTE | 2021-11-21 09:59 | CASEMGMT ---
TC to pt to see which [facility] she decided to go to. Pt states she is unsure yet. Provided her with RN CM phone number to call back when she decides so the order could be faxed to the correct branch. Pt states she will call back when this information is known.
== END 2021-11-20 14:28 | disposition home health service (06) ==
LOC: ED 22:07 → MS3 23:04
PROVIDERS: Admitting Provider Internal Medicine; Emergency Provider Emergency Medicine; Visit Provider Student in an Organized Health Care Education/Training Program
DX: G89.29 Other chronic pain (principal); J44.9 Chronic obstructive pulmonary disease, unspecified; S82.002D Unspecified fracture of left patella, subsequent encounter for closed fracture with routine healing; W19.XXXD Unspecified fall, subsequent encounter; M25.452 Effusion, left hip; Z87.891 Personal history of nicotine dependence; M19.90 Unspecified osteoarthritis, unspecified site; G62.9 Polyneuropathy, unspecified; S70.02XD Contusion of left hip, subsequent encounter; Z79.82 Long term (current) use of aspirin; K21.9 Gastro-esophageal reflux disease without esophagitis; W01.0XXD Fall on same level from slipping, tripping and stumbling without subsequent striking against object, subsequent encounter; Z79.899 Other long term (current) drug therapy; Z79.890 Hormone replacement therapy; E03.9 Hypothyroidism, unspecified; G47.30 Sleep apnea, unspecified
CPT/HCPCS: 36415; 73502; 73560; 80048; 80053; 82306; 85025; 96372; 96374; 96376; 97110; 97116; 97162; 97165; 97530; 97535; 99218; 99251; 99282; A4216; G0378; G0463